=== PATIENT | female | born 1985 | race Hispanic/Latino ===

== ENCOUNTER 2024-03-09 10:24 | Emergency (ER) | payer OTHER ==
[~2024-03-09] VITALS: Ht 160 cm; Wt 68.9 kg
[2024-03-09 10:30] VITALS: PULSE 68; RESP 15; TEMP 97.7; O2SAT 100
[2024-03-09] MEDS: IBUPROFEN 600 MG TAB PO STA (11:40)
== END 2024-03-09 12:57 | disposition home or self-care (01) ==
LOC: ER 10:31
DX: S39.012A Strain of muscle, fascia and tendon of lower back, initial encounter (principal); V43.52XA Car driver injured in collision with other type car in traffic accident, initial encounter; Y92.414 Local residential or business street as the place of occurrence of the external cause
CPT/HCPCS: 72110; 99283